=== PATIENT | female | born 1950 | race Caucasian/White ===

== ENCOUNTER 2024-03-07 12:32 | Outpatient (CLI) | payer MEDICARE, SELFPAY ==
--- NOTE | 2024-03-07 12:41 | ECG_ITS ---
Test Date: 2024-03-07 12:55:47 Measurements Intervals [place] Rate: 84 P: 7 WY: 148 QRS: -2 QRSD: 80 T: 12 QT: 330 QTc: 391 Interpretive Statements SINUS RHYTHM No previous ECG available for comparison Electronically Signed On 03-07-2024 15:46:24 SYSTEMS ADMIN by Norman Spence M.D.
[2024-03-07 13:14] LABS: Anion Gap 5 mmol/L (4-12); Blood Urea Nitrogen 17 mg/dL (7-17); Calcium 10.1 mg/dL (8.4-10.2); Carbon Dioxide 32 mmol/L (22-30); Chloride 100 mmol/L (98-107); Estimated Glomerular Filt Rate 54; Glucose 105 mg/dL (65-110); Potassium 4.2 mmol/L (3.4-5.0); Sodium 137 mmol/L (137-145)
== END 2024-03-07 12:33 | disposition home or self-care (01) ==
LOC: ANHSURGERY 12:39
PROVIDERS: Anesthesiology; Visit Provider Orthopaedic Surgery
DX: Z01.818 Encounter for other preprocedural examination (principal); I10 Essential (primary) hypertension; E78.5 Hyperlipidemia, unspecified; Z79.899 Other long term (current) drug therapy
CPT/HCPCS: 36415; 80048; 93005

== ENCOUNTER 2024-03-20 02:44 | Day surgery (SDC) | payer MEDICARE, SELFPAY ==
[2024-03-04 13:34] VITALS: BMI 26.7
--- NOTE | 2024-03-04 13:46 | PC.NURSE ---
Report to the Outpatient Waiting Room, entrance under the green pavilion located off [facility], at time _11:30am on date __03/20/24 . Planned Procedure Time: __1:30pm .? Time changes happen often and if your time is changed the preop area will call you the afternoon before. - You and your visitor will be asked to self-screen and do not enter if you have any COVID symptoms. Please call surgeon if you need to reschedule. - A mask is optional within the hospital at this time. Patients may have clear liquids (water, carbonated beverages, clear teas, apple juice) until 3 hours prior to surgery with a maximum of 20 ounces. - No food from midnight until time of surgery and no smoking. This includes no chewing gum, candy or mints.(10:30) Take only the following medications with a SIP of water on the morning of surgery: _Amlodipine and Tylenol if needed DO NOT STOP ANY OF YOUR OTHER PRESCRIPTION MEDICATIONS PRIOR TO SURGERY EXCEPT THE FOLLOWING Medications to discontinue per physician Hold all vitamins and supplements for 3 days prior per Anesthesia Date to take last dose___03/16/24 Please no make-up, nail romanian, hairspray, perfume, deodorant, or body powder the day of surgery.? No jewelry (including any body piercings) or valuables the day of surgery, leave them at home.? Please take a shower or bath the night before, or the morning of, surgery with an antibacterial soap.? Wear comfortable, loose fitting clothing.? - Jewelry must be removed prior to entering the operating room.? Rings and piercings that are not removed may be cut off. - The hospital will not accept responsibility for valuables.? - Please leave all valuables, including medications, at home the day of surgery. If you are going home after surgery, a licensed bus driver must drive you home.? - NO public transportation without another adult if you receive anesthesia. - We recommend that an adult stay with you for 24 hours following discharge. - We also recommend that you do not drive, make important decision, drink alcoholic beverages, or take any drugs that were not prescribed by your health care provider for at least 24 hours after your discharge time. Follow any additional instructions given to you from your surgeon. Telephone instructions given to __Patient and asked if any additional questions and then verbalized understanding. Patient advised to call surgeon office or pre surgery nurse liaison [phone] if any additional questions.
[2024-03-20] VITALS (8 sets, daily range): BP systolic 92–129; BP diastolic 55–65; PULSE 66–100; RESP 13–20; TEMP 36.3–36.6; O2SAT 99–100; BMI 26.4
--- NOTE | 2024-03-20 09:41 | WPDHPUPDATE1 ---
History and Physical Update Update Date/Time: 03/20/24 09:41 History and Physical has been reviewed, including an updated exam of the patient. There are NO changes in the patient's condition. Risks, benefits, and alternatives have been discussed and questions answered. Patient agrees to proceed with procedure.
[2024-03-20] MEDS: LACTATED RINGERS 1,000 ML 30 ML IV CONT (11:45)
[2024-03-20] MEDS: KETOROLAC 15 MG/ML VIAL (*BKC) IV PUSH (12:07)
[2024-03-20] MEDS: ACETAMINOPHEN 500 MG TABLET 1000 MG PO (12:07)
--- NOTE | 2024-03-20 12:24 | P.PNAN_ITS ---
Anes - Initial Pre Proc Eval Procedure: Operation Date: 03/20/24 13:30 Proposed Procedures p Left Knee Arthroscopic Partial Medial Meniscectomy - Mohan Powers MD Date/Time: 03/20/24 12:24 Surgeon: Mohan Powers MD Pre Op Diagnosis: Lt Knee Medial Meniscus Tear Patient Data Age: 73 Gender: F Height: 1.6 m Weight: 67.8 kg Last Vital Signs Temp 36.6 C 03/20/24 11:10 Pulse 100 03/20/24 11:10 Resp 16 03/20/24 11:10 BP 129/61 03/20/24 11:10 Pulse Ox 99 03/20/24 11:10 O2 Del Method Room Air 03/20/24 11:10 Allergies Allergy/AdvReac Type Severity Reaction Status Date / Time promethazine Allergy shortness Verified 03/20/24 11:52 of breath Home Medications ?Medication ?Instructions ?Recorded ?Confirmed ?Type amlodipine 2.5 mg tablet 2.5 mg PO DAILY 02/25/24 03/20/24 History lisinopril 20 1 tablet PO DAILY 02/25/24 03/20/24 History mg-hydrochlorothiazide 12.5 mg tablet rosuvastatin 20 mg tablet 20 mg PO DAILY 02/25/24 03/20/24 History acetaminophen 500 mg tablet 500 mg PO Q6H PRN pain 03/04/24 03/04/24 History (Tylenol Extra Strength) vitamin E 268 mg (400 unit) capsule 268 mg PO DAILY 03/04/24 03/20/24 History hydrocodone 5 mg-acetaminophen 325 1 - 2 tablet PO Q4-6H PRN pain 7 03/20/24 Rx mg tablet days #30 tabs Patient hx anesthesia problems: none Family hx anesthesia problems: none Results Review: All pre-operative results and documents have been reviewed as part of the pre- operative evaluation. [facility] Past Medical History Medical History (Updated 03/20/24 @ 12:28 by Eusebio Garcia DO) Diabetes type 2, controlled Ruptured synovial cyst of popliteal space Gastroesophageal reflux disease without esophagitis Anxiety Hyperglycemia Other hyperlipidemia Social History Social History (Updated 02/25/24 @ 10:11 by Lizzie Vasques CMA) Smoking status: Never smoker Alcohol intake: never Substance use: never Do You Feel Safe in your Home?: Yes Lack of Transportation: No Lack of Food: Never True Current Housing: I Have Housing Concerned About Future Housing: No Difficulty Paying Gas/Electric Bills: No Difficulty Paying for Meds: No Currently Unemployed: No Education: High School Diploma/GED Difficulty w/ Childcare or Family Care: No Living arrangements: alone Spiritual care concerns: No Anes - Eval Final PreProcedure Day of Procedure 03/20/24 12:24 Patient weight: overweight Heart: regular rate and rhythm Lungs: clear to auscultation Airway: Mallampati scale class II Neurological: alert and oriented Last oral intake: >/= 8 hours ASA classification: III Emergent: no Anesthetic plan: proceed Anesthesia type and monitoring: general LMA and standard monitoring Results Review: All pre-operative results and documents have been reviewed as part of the pre- operative evaluation. Informed Consent: The patient's anesthetic plan and its attendant risks and benefits were discussed with the patient/family/POA. Questions were solicited and answers provided to the satisfaction of the patient/family/POA.
[2024-03-20] MEDS: ceFAZolin 2 GM/D5W 50 ML 2 GM/50 ML BAG IVPB (13:13)
[2024-03-20] MEDS: BUPIVACAINE/EPINEPHRINE 0.5% 50 ML VIAL 20 ML INFILTRATE (13:27)
--- NOTE | 2024-03-20 13:54 | W.PM.PROC2 ---
Procedure Note - Detailed Date of Procedure 03/20/24 Pre-op Diagnosis Lt Knee Medial Meniscus Tear Post-op Diagnosis Same Procedure Performed Arthroscopic partial medial meniscectomy, left knee. Surgeon Mohan Powers MD Anesthesia General Findings Complex medial meniscus tear. Bakers cyst decompressed. Moderate chondromalacia anteromedial femur. Mild synovitis. Medial femur chondromalacia grade 2, medial tibia grade 1. Lateral femur chondromalacia grade 0, lateral tibia grade 0. Patellar grade 1, trochlea grade 2. Description of Procedure The patient was identified and the surgical site confirmed and signed in the preoperative holding area. Antibiotics were started per protocol, and the patient was brought to the operative room and transferred to the OR table. A general anesthetic was administered. Supine position with the operative lower extremity position in the leg rivera after placement of a well padded tourniquet. The leg support was lowered and the contralateral limb was supported with a soft bolster. The knee was prepped and draped in the usual sterile fashion. A time-out was performed. The portal sites were marked and infiltrated with 0.5% Marcaine 20 mL. The limb was exsanguinated and the tourniquet inflated to 300 mL Hg. Standard inferolateral and inferomedial portals were established. Inflow was obtained with the saline pump. The camera was introduced. Diagnostic inspection of the joint was accomplished. The meniscus was debrided with the arthroscopic shaver and punches until stable. Minimal chondroplasty of anteromedial trochlea chondromalacia. The arthroscopic instruments were removed. The tourniquet released and wounds closed with subcutaneous 4-0 Monocryl absorbable suture. Steri strips and a sterile dressing were applied. A light elastic wrap was placed. The patient was extubated and brought to the recovery room in stable condition. Estimated Blood Loss 5 Drains No Complications No immediate complications Condition Stable Disposition PACU [facility] Billing Surgery - Charge Forward: Surgery Billing
[2024-03-20 15:01] LABS: Glucose Point of Care 100 mg/dl (65-105)
== END 2024-03-20 16:00 | disposition home or self-care (01) ==
PROVIDERS: Visit Provider Orthopaedic Surgery
PROC: (CPT 29870; principal; 2024-03-20 13:30)
DX: S83.232A Complex tear of medial meniscus, current injury, left knee, initial encounter (principal); M71.22 Synovial cyst of popliteal space [Baker], left knee; M94.262 Chondromalacia, left knee; M65.862 Other synovitis and tenosynovitis, left lower leg; X58.XXXA Exposure to other specified factors, initial encounter; E11.9 Type 2 diabetes mellitus without complications; K21.9 Gastro-esophageal reflux disease without esophagitis; F41.9 Anxiety disorder, unspecified; E78.49 Other hyperlipidemia; Z79.891 Long term (current) use of opiate analgesic
CPT/HCPCS: 29881; 82948; A9270; J0690; J1885; J3010; J7120

== ENCOUNTER 2024-07-09 09:16 | Outpatient (CLI) | payer MEDICARE, SELFPAY ==
[2024-07-09 10:06] LABS: Hematocrit 38.6 % (37.0-47.0); Hemoglobin 13.2 g/dL (12.0-15.0)
--- OUTSIDE RECORDS SUMMARY | 2024-07-09 10:20 | XMS_ITS ---
Author Organization Unknown Address [address] [place] [phone] Phone Care Team Providers Care [employer] Store Area Supervisor Name Role Phone GOKUL SOLITARIO Attending Unavailable IJEOMA GILMAN DIRECTOR OF HEAD START Unavailable TAO DIAZ Primary Unavailable Immunization Immunization Date Status Additional Notes Code Code System pneumococcal polysaccharide PPV23 12/26/2016 Completed 33 CVX Td (adult), 5 Lf tetanus toxoid, preservative free, adsorbed 09/18/2015 Completed 113 CVX Tdap 12/31/2018 Completed 115 CVX Pneumococcal conjugate PCV 13 04/13/2020 Completed 133 CVX Influenza, high-dose, trivalent, PF 12/09/2020 Completed 135 CVX Influenza, split virus, quadrivalent, PF 02/01/2016 Completed 150 CVX Influenza, split virus, quadrivalent, preservative 12/26/2016 Completed 158 C VX Influenza, split virus, quadrivalent, preservative 11/30/2017 Completed 158 C VX Influenza, adjuvanted, trivalent, PF 11/13/2018 Completed 168 CVX zoster recombinant 09/10/2018 Completed 187 CVX zoster recombinant 11/13/2018 Completed 187 CVX Influenza, high-dose, quadrivalent, PF 12/25/2022 Completed 197 CVX Influenza, adjuvanted, quadrivalent, PF 12/31/2019 Completed 205 CVX Influenza, adjuvanted, quadrivalent, PF 12/25/2021 Completed 205 CVX COVID-19, mRNA, LNP-S, PF, 3 0 mcg/0.3 mL dose 05/28/2020 Completed 208 CVX COVID-19, mRNA, LNP-S, PF, 3 0 mcg/0.3 mL dose 06/19/2020 Completed 208 CVX COVID-19, mRNA, LNP-S, PF, 3 0 mcg/0.3 mL dose 01/19/2021 Completed 208 CVX COVID-19, mRNA, LNP-S, PF, 3 0 mcg/0.3 mL dose, adrian-sucrose 10/15/2021 Completed 217 CVX RSV, recombinant, protein subunit RSVpreF, adjuvant reconstituted, 0.5 mL, PF 03/02/2023 Completed 303 CV X COVID-19, mRNA, LNP-S, PF, adrian-sucrose, 30 mcg/0.3 mL 12/25/2022 Completed 309 CVX Results URINARY CALCULI QUANT - Angie ect Date/Time: 05/02/2023 17:38 [facility] ID: [id number] [place], [place], [id number] LOINC: Test Value Unit Reference Range Code Code System Flag Source COMMENT 64914-1 LOINC Color Brown 9796-4 LOINC Size 2x3 9802-0 LOINC Weight 2 9804-6 LOINC Composition COMMENT Calcium OxalateMonohydrate 70 06637-1 LOINC Calcium Oxalate Dihydrate 30 23671-7 LOINC Calcium Phosphate TNP 37009-6 LOINC MwHN3CS4 (Struvite) TNP 00775-7 LOINC Uric Acid TNP 51491-0 LOINC Uric Acid Dihydrate TNP 99647-3 LOINC Ammonium Acid Urate TNP 27113-8 LOINC Sodium Acid Urate TNP 56358-0 LOINC CaHPO4 (Brushite) TNP 87306-6 LOINC Cystine TNP 35605-1 LOINC Cholesterol TNP 36105-1 LOINC Calcium Bilirubinate TNP 89753-5 LOINC Calcium Carbonate TNP 03933-6 LOINC Triamterene TNP 49847-1 LOINC MgHPO4 (Newberyite) TNP 62325-4 LOINC Dried Blood TNP 52126-8 LOINC Cellular Material TNP 45005-9 LOINC Calcium phosphate(hydroxyl) TNP Calcium phosphate(carbonate) TNP 60441-2 HUGH NC 2,8 Dihydroxyadenine TNP Xanthine TNP 55707-1 LOINC Bilirubin TNP 88089-7 LOINC Calcium Palmitate TNP Calcium Stearate TNP Drug or Metabolite TNP Other component(s) TNP Comment TNP 49769-9 LOINC Comment TNP 83404-4 LOINC Photo COMMENT Comment: COMMENT 90333-2 LOINC Please note: COMMENT Disclaimer: COMMENT PDF . 10710-2 LOINC PYLEOGRAM RETROGRADE CYSTO - Completed: 05/02/2023 17:55 LOINC: EXAM DESCRIPTION: PYLEOGRAM RETROGRADE CYSTO REASON FOR STUDY: KIDNEY STONE COMPARISON: None RADIATION DOSE: Dose: 0.75330 mGycm2 Dose Area Product (DAP) Views: 1 TECHNIQUE: Intraoperative fluoroscopy was provided for procedure performed by Dr. Patterson. FINDINGS: Intraoperative fluoroscopy was provided for procedure performed by Dr. Patterson. 8 intraoperative fluoroscopic images were obtained of the abdomen and pelvis in the frontal projection for IVP, cystoscopy, right retrograde pyelogram, and nephroureteral stent placement. There is contrast noted in the right renal collecting system. There is a wire noted in the right renal collecting system. There is subsequent placement of a right nephroureteral stent with its proximal tip in the right renal pelvis and the distal tip in the urinary bladder. IMPRESSION: Intraoperative fluoroscopy was provided for procedure performed by Dr. Patterson. Please see procedure note. THIS IS AN ELECTRONICALLY VERIFIED FINAL REPORT 05/03/2023 10:51 AM - Electronically signed by Mamta Welch D.O. PS: PS Report ID: [id number] Reading Location: [id number] Social History Type Status Start Date End Date Code Code Syst em Sex Female Vital Signs Vital Sign Value Unit Pettis Value Pettis Unit Date/Time Recent/Initial? Code Code System Body Mass Index 25.75 kg/m2 05/02/2023 14:23 Most Recent 60998 -5 LOINC Body Mass Index 25.75 kg/m2 04/20/2023 12:27 Initial 43245 -5 LOINC Systolic Blood Pressure 133 mm[Hg] 05/02/2023 14:22 Initial 8480- 6 LOINC Diastolic Blood Pressure 64 mm[Hg] 05/02/2023 14:22 Initial 8462- 4 LOINC Body Surface Area 1.75 m2 05/02/2023 14:23 Most Recent 3140- 1 LOINC Body Surface Area 1.75 m2 04/20/2023 12:27 Initial 3140- 1 LOINC Height 162.560 0 cm 64.00 in 05/02/2023 14:23 Most Recent 8302- 2 LOINC Height 162.560 0 cm 64.00 in 04/20/2023 12:27 Initial 8302- 2 LOINC O2 Saturation 99 % 2023 14:22 Initial 13881 -5 LOINC Pulse 90.0 /min 05/02/2023 14:22 Initial 8867- 4 LOINC Respiration 16 /min 05/02/19 14:22 Initial 9279- 1 LOINC Temperature 36.7 Maura 98.0 F 05/02/19 14:22 Initial 8310- 5 LOINC Weight 68.04 kg 150.00 lbs 05/02/2023 14:23 Most Recent 07892 -7 LOINC Weight 68.04 kg 150.00 lbs 04/20/2023 12:27 Initial 96817 -7 [facility] Medications Medication Start Date End Date Route Frequency Dose Code Code System Medication Instructions Home Meds Famotidine 20MG Oral Tablet 05/02/2023 Unknown ORAL AT BEDTIME 20 MILLIGRAMS 014520 RxNorm TAKE 20 MILLIGRAMS ORAL AT BEDTIME HYDROcodone bitartrate-johnie taminophen 5MG-325MG Oral Tablet 05/02/2023 Unknown ORAL NEEDED EVERY 6 HOURS 1 unit(s) 422006 RxNorm TAKE 1 EACH ORAL NEEDED EVERY 6 HOURS Keflex 500MG Oral Capsule 05/02/2023 Unknown ORAL 4 times a day 500 MILLIGRAMS 555189 RxNorm TAKE 500 MILLIGRAMS ORAL 4 times a day Lisinopril/hyd roCHLOROthiazi de 20MG-12.5MG Oral Tablet 05/02/2023 Unknown ORAL ONCE A DAY 1 unit(s) 194308 RxNorm TAKE 1 EACH ORAL ONCE A DAY Meclizine 12.5MG Oral Tablet 05/02/2023 Unknown ORAL NEEDED 3 TIMES A DAY 12.5 MILLIGRAMS 280520 RxNorm TAKE 12.5 MILLIGRAMS ORAL NEEDED 3 TIMES A DAY Rosuvastatin 10MG Oral Tablet 05/02/2023 Unknown ORAL AT BEDTIME 10 MILLIGRAMS 544635 RxNorm TAKE 10 MILLIGRAMS ORAL AT BEDTIME Tamsulosin HCl 0.4MG Oral Capsule 05/02/2023 Unknown ORAL ONCE A DAY 0.4 MILLIGRAMS 947491 RxNorm TAKE 0.4 MILLIGRAMS ORAL ONCE A DAY amLODIPine Besylate 2.5MG Oral Tablet 05/02/2023 Unknown ORAL ONCE A DAY 2.5 MILLIGRAMS 702344 RxNorm TAKE 2.5 MILLIGRAMS ORAL ONCE A DAY Hospital Discharge Instructions Should you have any questions prior to discharge, please contact a member of your healthcare team. If you have left the hospital and have any questions, please contact your primary care physician. Reason For Referral No Data Found Procedures Procedure Name Date Status Code Code Syste m Cholecystectomy completed 69083307 SNOMEDCT Dilation and curettage completed 05863269 SN OMEDCT Colonoscopy completed 24898919 SNOMEDCT C section completed 72062585 SNOMEDCT Cystourethroscopy, with uret eroscopy and/or pyeloscopy; with lithotripsy i 05/02/2023 completed 13754 C PT Anesthesia for transurethral procedures; with fragmentation, manipulation 05/02/2023 completed 69680 CPT Implants Implanted ANGELY Status Assigning Authority Procedure Date Lot Number Serial Number Manufacturing Date Expiration Date Distinct ID Code Brand Name Model Number [employer] Contour Right Stent 6F (2.0mm) x 24cm Active cystoscopy w/poss right retrograde pyelogram, poss right ureteral stent exchange 05/02 [id number] [employer] Cont[employer] r [id number] 2220 Allergies and Adverse Reactions Allergy Substance Reaction Severity Start Date Concern Status Co de Code System PHENERGAN SOB (SNOMED-CT: 024226840) Active 474178 RxNorm Plan of Treatment Cystoscopy with Laser (X-RAY) Pyelogram Retro Cystoscopy 05/02/2023 Encounters Encounter Diagnosis Start Date Code Code Sys tem Calculus of ureter 05/02/2023 SNOMED-CT Personal Care Team Section Performer Name Performer Role Active Date Inactive JOE Carson PCP - Primary care physician 2023-04-25
[2024-07-09 10:22] LABS: Albumin Level 4.8 g/dL (3.5-5.1); Estimated Glomerular Filt Rate 55; Glucose 118 mg/dL (65-110)
== END 2024-07-09 09:17 | disposition home or self-care (01) ==
LOC: ANHLAB 09:26
PROVIDERS: Visit Provider Orthopaedic Surgery
DX: M17.12 Unilateral primary osteoarthritis, left knee (principal); E11.9 Type 2 diabetes mellitus without complications
CPT/HCPCS: 36415; 82040; 82565; 82947; 85014; 85018

== ENCOUNTER 2024-10-22 13:36 | Outpatient (CLI) | payer MEDICARE, SELFPAY ==
[2024-10-22 15:13] LABS: Hematocrit 38.9 % (37.0-47.0); Hemoglobin 13.2 g/dL (12.0-15.0); Immature Granulocyte Percent A 0.2 % (0-0.5); Lymphocytes Absolute Auto 2.17 K/mm3 (0.9-3.2); Mean Corpuscular HGB Conc 33.9 g/dl (32-36); Mean Corpuscular Hemoglobin 28.4 pg (26-34); Mean Corpuscular Volume 83.8 fl (80-100); Nucleated Red Blood Cells Absolute Auto 0.000 K/mm3 (0.0-0.012); Nucleated Red Blood Cells Perc 0.0 % (0.0-0.2); Platelet Count Result 214 k/mm3 (150-375); Red Blood Count 4.64 M/mm3 (4.2-5.4); White Blood Count 5.9 K/mm3 (4.5-10.0)
[2024-10-22 17:16] LABS: Anion Gap 10 mmol/L (4-12); Blood Urea Nitrogen 18 mg/dL (7-17); Calcium 10.1 mg/dL (8.4-10.2); Carbon Dioxide 29 mmol/L (22-30); Chloride 99 mmol/L (98-107); Estimated Glomerular Filt Rate 60; Glucose 98 mg/dL (65-110); Potassium 3.8 mmol/L (3.4-5.0); Sodium 138 mmol/L (137-145)
[2024-10-22 17:33] LABS: MRSA (PCR) NOT DETECTED (NOT DETECTE)
== END 2024-10-22 13:37 | disposition home or self-care (01) ==
LOC: ANHSURGERY 13:42
PROVIDERS: Anesthesiology; Visit Provider Orthopaedic Surgery
DX: Z01.812 Encounter for preprocedural laboratory examination (principal); M17.12 Unilateral primary osteoarthritis, left knee; I10 Essential (primary) hypertension
CPT/HCPCS: 36415; 80048; 85025; 87641

== ENCOUNTER 2024-11-06 00:29 | Day surgery (SDC) | payer MEDICARE, SELFPAY ==
--- NOTE | 2024-10-22 13:44 | PC.NURSE ---
Report to the Outpatient Waiting Room, entrance under the green pavilion located off [facility], at time 11 AM on date _11/06/24 . Planned Procedure Time: __1:00 PM .? Time changes happen often and if your time is changed the preop area will call you the afternoon before. - You and your visitor will be asked to self-screen and do not enter if you have any COVID symptoms. Please call surgeon if you need to reschedule. - A mask is optional within the hospital at this time. Patients may have clear liquids (water, carbonated beverages, clear teas, apple juice) until 3 hours prior to surgery( 10 AM) with a maximum of 20 ounces. - No food from midnight until time of surgery and no smoking, or chewing tobacco (or any form of nicotine). No chewing gum, candy or mints. Take only the following medications with a SIP of water on the morning of surgery: ___AMLODIPINE DO NOT STOP ANY OF YOUR OTHER PRESCRIPTION MEDICATIONS PRIOR TO SURGERY EXCEPT THE FOLLOWING Hold all vitamins and supplements for 3 days per anesthesiologist.LAST DOSE 11/02/24 Medications to discontinue per physician NONE Date to take last dose Please no make-up, nail taiwanese, hairspray, perfume, deodorant, or body powder the day of surgery.? No jewelry (including any body piercings) or valuables the day of surgery, leave them at home.? Please take a shower or bath the night before, or the morning of, surgery with an antibacterial soap.? Wear comfortable, loose fitting clothing.? Children are encouraged to wear pajamas. - Jewelry must be removed prior to entering the operating room.? Rings and piercings that are not removed may be cut off. - The hospital will not accept responsibility for valuables.? - Please leave all valuables, including medications, at home the day of surgery. If you are going home after surgery, a licensed screw driver operator must drive you home.? - NO public transportation without another adult if you receive anesthesia. - We recommend that an adult stay with you for 24 hours following discharge. - We also recommend that you do not drive, make important decision, drink alcoholic beverages, or take any drugs that were not prescribed by your health care provider for at least 24 hours after your discharge time. For Pediatric surgeries, we recommend two adults accompany the child home. Follow any additional instructions given to you from your surgeon. VERBAL AND WRITTEN instructions given to _PATIENT and asked if any additional questions and then verbalized understanding. Patient advised to call surgeon office or pre surgery nurse liaison [phone] if any additional questions.
[2024-10-22 14:28] VITALS: BP 124/65; PULSE 75; RESP 18; TEMP 37.3; O2SAT 100; BMI 26.1
[2024-11-06] VITALS (13 sets, daily range): BP systolic 103–128; BP diastolic 57–89; PULSE 79–104; RESP 10–18; TEMP 36–37.2; O2SAT 88–100; BMI 25.7
--- NOTE | ~2024-11-06 | XR_ITS ---
Clinical history:Postop left partial knee arthroplasty EXAM:Left knee x-ray 06/13/2024 TECHNIQUE:2 images of the left knee were obtained Comparisons:06/13/2024 FINDINGS: There is a hemiarthroplasty in the medial compartment of the left knee without radiographic evidence for loosening of the hardware. Postoperative changes noted including edema and air about the left knee. No fracture identified. No metallic radiopaque foreign body identified. IMPRESSION: Left knee hemiarthroplasty with postoperative changes No fracture identified. Reviewed, dictated and finalized at location Q.
--- NOTE | 2024-11-06 07:20 | WPDHPUPDATE1 ---
History and Physical Update Update Date/Time: 11/06/24 07:20 History and Physical has been reviewed, including an updated exam of the patient. There are NO changes in the patient's condition. Risks, benefits, and alternatives have been discussed and questions answered. Patient agrees to proceed with procedure.
[2024-11-06] MEDS: ACETAMINOPHEN 500 MG TABLET 1000 MG PO (11:00)
[2024-11-06] MEDS: LACTATED RINGERS 1,000 ML 30 ML IV CONT ×2 (11:45→15:00)
[2024-11-06] MEDS: TRANEXAMIC ACID 1,000MG/ISO100 1,000 MG/100 ML BAG 200 MG IVPB (11:59)
--- NOTE | 2024-11-06 12:30 | WPDANESEPPF ---
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 Patient Data Age: 74 Gender: F Height: 1.61 m Weight: 66.8 kg Last Vital Signs Temp 36.8 C 11/06/24 11:25 Pulse 79 11/06/24 11:25 Resp 18 10/22/24 14:28 BP 128/65 11/06/24 11:25 Pulse Ox 100 11/06/24 11:25 O2 Del Method Room Air 11/06/24 11:25 Allergies Allergy/AdvReac Type Severity Reaction Status Date / Time promethazine Allergy Severe Other Verified 10/22/24 14:38 Home Medications ?Medication ?Instructions ?Recorded ?Confirmed ?Type amlodipine 2.5 mg tablet 2.5 mg PO DAILY 02/25/24 11/06/24 History lisinopril 20 1 tablet PO DAILY 02/25/24 10/22/24 History mg-hydrochlorothiazide 12.5 mg tablet rosuvastatin 20 mg tablet 20 mg PO HS 02/25/24 10/22/24 History acetaminophen 500 mg tablet 500 mg PO Q6H PRN pain 03/04/24 10/22/24 History (Tylenol Extra Strength) vitamin E 268 mg (400 unit) capsule 268 mg PO DAILY 03/04/24 10/22/24 History Patient hx anesthesia problems: none Family hx anesthesia problems: none Results Review: All pre-operative results and documents have been reviewed as part of the pre-operative evaluation. [facility] Past Medical History Medical History Diabetes type 2, controlled Ruptured synovial cyst of popliteal space Gastroesophageal reflux disease without esophagitis Anxiety Hyperglycemia Other hyperlipidemia Surgical History Surgical History Status post arthroscopic partial medial meniscectomy of left knee (~03/20/24) Social History Social History Smoking status: Never smoker Alcohol intake: never Substance use: never Do You Feel Safe in your Home?: Yes Lack of Transportation: No Lack of Food: Never True Current Housing: I Have Housing Concerned About Future Housing: No Difficulty Paying Gas/Electric Bills: No Difficulty Paying for Meds: No Currently Unemployed: No Education: High School Diploma/GED Difficulty w/ Childcare or Family Care: No Living arrangements: alone Spiritual care concerns: No Anes - Eval Final PreProcedure Day of Procedure 11/06/24 12:30 Patient weight: obese Heart: regular rate and rhythm Lungs: clear to auscultation Airway: Mallampati scale class II Neurological: alert and oriented Last oral intake: >/= 8 hours ASA classification: III Emergent: no Anesthetic plan: proceed Anesthesia type and monitoring: general LMA and standard monitoring Results Review: All pre-operative results and documents have been reviewed as part of the pre-operative evaluation. Informed Consent: The patient's anesthetic plan and its attendant risks and benefits were discussed with the patient/family/POA. Questions were solicited and answers provided to the satisfaction of the patient/family/POA.
[2024-11-06] MEDS: ceFAZolin 2 GM in SODIUM CHLORIDE 0.9% IV 50 ML 100 ML IVPB ×2 (12:46→20:58)
[2024-11-06] MEDS: SODIUM CHLORIDE 0.9% IV 37.7 ML, MORPHINE SULFATE INJ (*CRX) 2 MG, ROPivacaine HCL 1% 2... INFILTRATE (13:22)
[2024-11-06] MEDS: TRANEXAMIC ACID 1,000 MG/10 ML AMPUL 1000 MG IV PUSH (14:33)
[2024-11-06] MEDS: fentaNYL CITRATE INJ (*CRX) 100 MCG/2 ML VIAL 25 MCG IV PUSH ×4 (15:25→15:47)
--- NOTE | 2024-11-06 16:00 | W.PM.PROC2 ---
Procedure Note - Detailed Date of Procedure 11/06/24 Pre-op Diagnosis Left knee degenerative arthritis. Post-op Diagnosis Same Procedure Performed Partial knee arthroplasty, left knee, medial compartment. Surgeon Mohan Powers MD Anesthesia General Findings Good bone quality. ACL intact. -1 distal femoral resection. Description of Procedure The patient was given a general anesthetic. Preoperative antibiotics were given. The knee was prepped and draped in the usual sterile fashion. A longitudinal incision was created along the medial aspect of the patellar tendon. A minimally invasive optimized mid vastus approach was completed. No medial release was taken. The external alignment guide was used to cut the tibia with anatomic posterior slope. A 4 millimeter resection was taken. The spacer block technique was utilized to measure flexion and extension gaps after the osteophytes were removed. The difference was used to calculate the distal resection. The distal cutting block was utilized to cut the distal femur. The AP and chamfer block was utilized for this last cuts. The femur and tibia were sized. Range of motion and gap balancing was assessed. This was tested with the 1.5 millimeter spacer. The bony surfaces were cleaned with lavaged. Lug holes were drilled. The real components were cemented into position. Excess cement was carefully removed. The tourniquet was released. Meticulous hemostasis was maintained. The wound was closed with interrupted 1 Vicryl suture followed by a running 0 Quill suture and 2-0 Quill suture. Steri-Strips are placed in the skin the patient was extubated and brought to recovery room in stable condition. There were no complications. Implants mGenerator PKR system femur size 2, tibia size 2, 8 mm polyethylene insert. One batch Simplex antibiotic cement. Estimated Blood Loss 20 Drains No Pathology None sent Complications No immediate complications Condition Stable Disposition PACU [facility] Billing Surgery - Charge Forward: Surgery Billing
--- NOTE | 2024-11-06 16:31 | ADMGEN ---
This patient, Rachel Webb, was admitted to [facility] Surg Room 306-02. Patient/family oriented to hospital policies and general routines including ID bracelet, bed and alarms, visiting hours, pain management, procedures, bathroom and other care routines, personal items, smoking policy, room service/diet, and visiting hours. Information on how to activate the Rapid Response Team has been discussed. Patient/Family are encouraged to report perceived risks to care and to ask questions if they do not understand what they are told or what they should do.
[2024-11-06] MEDS: oxyCODONE/ACETAMINOPHEN (*CRX) 10-325 MG TABLET 1 TAB PO ×2 (16:42→21:45)
[2024-11-06] MEDS: ASPIRIN 81 MG ENTERIC TABLET PO (17:27)
[2024-11-06] MEDS: ACETAMINOPHEN 325 MG TABLET 650 MG PO ×2 (17:27→23:43)
[2024-11-06] MEDS: MELOXICAM 7.5 MG TABLET PO (17:27)
[2024-11-06] MEDS: ROSUVASTATIN 20 MG TABLET PO (20:57)
[2024-11-07 00:10] VITALS: BP 111/46; PULSE 78; RESP 20; TEMP 35.9; O2SAT 97
[2024-11-07] MEDS: ACETAMINOPHEN 325 MG TABLET 650 MG PO (05:01)
[2024-11-07] MEDS: ceFAZolin 2 GM in SODIUM CHLORIDE 0.9% IV 50 ML 100 ML IVPB (05:02)
[2024-11-07 05:43] VITALS: BP 125/65; PULSE 76; RESP 14; TEMP 36.3; O2SAT 93
[2024-11-07 06:22] LABS: Hematocrit 35.7 % (37.0-47.0); Hemoglobin 12.0 g/dL (12.0-15.0); Immature Granulocyte Percent A 0.4 % (0-0.5); Lymphocytes Absolute Auto 0.99 K/mm3 (0.9-3.2); Mean Corpuscular HGB Conc 33.6 g/dl (32-36); Mean Corpuscular Hemoglobin 28.5 pg (26-34); Mean Corpuscular Volume 84.8 fl (80-100); Nucleated Red Blood Cells Absolute Auto 0.000 K/mm3 (0.0-0.012); Nucleated Red Blood Cells Perc 0.0 % (0.0-0.2); Platelet Count Result 199 k/mm3 (150-375); Red Blood Count 4.21 M/mm3 (4.2-5.4); White Blood Count 9.0 K/mm3 (4.5-10.0)
[2024-11-07 06:38] LABS: Anion Gap 8 mmol/L (4-12); Blood Urea Nitrogen 22 mg/dL (7-17); Calcium 9.1 mg/dL (8.4-10.2); Carbon Dioxide 27 mmol/L (22-30); Chloride 99 mmol/L (98-107); Estimated CRCL calculation 36 ml/min; Estimated Glomerular Filt Rate 53; Glucose 127 mg/dL (65-110); Potassium 3.9 mmol/L (3.4-5.0); Sodium 134 mmol/L (137-145)
[2024-11-07] MEDS: ASPIRIN 81 MG ENTERIC TABLET PO (09:18)
[2024-11-07] MEDS: MELOXICAM 7.5 MG TABLET PO (09:18)
[2024-11-07 10:07] VITALS: BP 116/45; PULSE 77; RESP 14; TEMP 36.3; O2SAT 98
== END 2024-11-07 12:00 | disposition home or self-care (01) ==
LOC: ANHSURGERY 10:20 → ANH3MEDSUR 16:29
PROVIDERS: Visit Provider Orthopaedic Surgery
PROC: (CPT 27446; principal; 2024-11-06 13:00)
DX: M17.12 Unilateral primary osteoarthritis, left knee (principal); M25.762 Osteophyte, left knee; E11.9 Type 2 diabetes mellitus without complications; K21.9 Gastro-esophageal reflux disease without esophagitis; F41.9 Anxiety disorder, unspecified; E78.49 Other hyperlipidemia; E66.9 Obesity, unspecified; Z68.25 Body mass index [BMI] 25.0-25.9, adult; Z98.890 Other specified postprocedural states
CPT/HCPCS: 27446; 36415; 73560; 80048; 82948; 85025; 97110; 97161; 97165; J0690; A9270; C1713; C1776; J0166; J1100; J1171; J1885; J2003; J2250; J2270; J2405; J2704; J2795; J3010; J7120